=== PATIENT | female | born 1940 | race Asian ===

== ENCOUNTER → 2017-07-24 | Outpatient (CLI) | payer MEDICARE, OTHER ==
[~2017-07-24] VITALS: Ht 149.9 cm; Wt 50.0 kg
[~2017-07-24] MED LIST: ACTOS PO; ARIP5TAB8 PO; ASPI81 PO; ATOR20TA86 PO; BENZ-51 PO; CALC1TAB93 PO; CYCL10 PO; ESOM20CA31 PO; FURO20 PO; GABA-531 PO; HYDR-2924 PO; LOPE2 PO; LOSA100T29 PO; METFORMIN PO; METO25XL PO; NITR0.4T50 SL; NYST5ORA7 PO; SITA50 PO; ZOLP5TAB2 PO
[2017-07-24 14:25] VITALS: BP 142/58
== END | disposition home or self-care (01) ==
LOC: SRCNTR 13:19
PROVIDERS: ATTEND Internal Medicine Cardiovascular Disease
DX: I42.2 Other hypertrophic cardiomyopathy (principal); I10 Essential (primary) hypertension; E78.5 Hyperlipidemia, unspecified; E11.9 Type 2 diabetes mellitus without complications; Z79.82 Long term (current) use of aspirin; Z79.84 Long term (current) use of oral hypoglycemic drugs
CPT/HCPCS: G0463

== ENCOUNTER → 2017-07-29 | Outpatient (CLI) | payer MEDICARE, OTHER | END | disposition home or self-care (01) | LOC: RADPV 09:03 | PROVIDERS: ATTEND Internal Medicine Cardiovascular Disease | DX: I08.3 Combined rheumatic disorders of mitral, aortic and tricuspid valves (principal); I42.1 Obstructive hypertrophic cardiomyopathy | CPT/HCPCS: 93306 ==